=== PATIENT | female | born 1960 | race Caucasian/White ===

== ENCOUNTER 2024-10-25 04:33 | Emergency (ER) | payer MEDICARE, SELFPAY ==
--- NOTE | 2024-10-25 | ECG_ITS ---
Test Reason : BRADYCARDIA Blood Pressure : */* mmHG Vent. Rate : 65 BPM Atrial Rate : 65 BPM P-R Int : 198 ms QRS Dur : 96 ms QT Int : 416 ms P-R-T Axes : 8 -33 -1 degrees QTcB Int : 432 ms Normal sinus rhythm Left axis deviation Minimal voltage criteria for LVH, may be normal variant ( Anish product ) T wave abnormality, consider anterior ischemia Abnormal ECG No previous ECGs available Referred By: Generic ED Physician Electronically Signed By: ADELE AGUIAR MD
--- NOTE | ~2024-10-25 | XR_ITS ---
EXAMINATION: XR CHEST CLINICAL INFORMATION: weakness COMPARISON: None available. TECHNIQUE: Frontal view of the chest was obtained. FINDINGS: No significant abnormality is noted involving the heart, lungs, mediastinum, bony thorax or soft tissues. XR/XR chest 1V IMPRESSION: Unremarkable chest Electronically signed by: Walter Posey MD 10/25/2024 07:59 AM [facility]
[2024-10-25 04:38] VITALS: BP 118/76; PULSE 67; O2SAT 98
[2024-10-25 04:41] VITALS: BP 104/59; PULSE 63; RESP 17; TEMP 36.3; O2SAT 96; BMI 35.0
[2024-10-25 05:23] LABS: Basophils Percent Auto 0.2 % (0-2); Eosinophils Percent Auto 0.5 % (0-4); Hematocrit 43.1 % (37.0-47.0); Hemoglobin 14.4 g/dl (12.0-16.0); Imm Gran Abs Auto 0.03 X10*3/uL (0.00-0.03); Imm Gran Pct Auto 0.5 % (0.0-0.4); Lymphocytes Absolute Auto 1.3 X10*3/uL (1.2-4.9); Lymphocytes Percent Auto 21.1 % (20-40); MANUAL DIFF FLAG NO; Mean Corpuscular HGB Conc 33.4 g/dl (31.0-35.0); Mean Corpuscular Volume 89.8 fL (80.0-98.0); Mean Platelet Volume 12.1 fL (9.4-12.3); Monocytes Absolute Auto 0.6 X10*3/uL (0.1-1.2); Monocytes Percent Auto 10.1 % (2-11); Neutrophils Absolute Auto 4.3 x10*3/uL (2.0-8.3); Neutrophils Percent Auto 67.6 % (45-73); Platelet Count 167 X10*3/uL (160-400); Red Cell Distribution Width 13.2 % (11.0-16.0); White Blood Count 6.3 X10*3/uL (4.8-10.8)
[2024-10-25 05:42] VITALS: BP 107/62; PULSE 63; RESP 18; O2SAT 99
[2024-10-25 05:44] LABS: Troponin-I High Sensitivity 14.3 ng/L (<3.5-17.0)
[2024-10-25 05:49] LABS: Alanine Aminotransferase 13 U/L (0-31); Albumin Level 3.9 g/dL (3.5-5.0); Alkaline Phosphatase 86 U/L (39-117); Anion Gap 14 (12-20); Aspartate Amino Transferase 24 U/L (5-31); Bilirubin Total 0.8 mg/dL (0.0-1.0); Blood Urea Nitrogen 16 mg/dL (9-16); Calcium 8.9 mg/dL (8.4-10.2); Carbon Dioxide 27 mmol/L (22-29); Chloride 98 mmol/L (96-108); Creatinine Clr Calc Pharmacy 55.5; Estimated Glomerular Filt Rate 54; Glucose Random 222 mg/dL (60-115); Potassium 3.3 mmol/L (3.3-5.1); Sodium 136 mmol/L (135-145); Total Protein 7.2 g/dL (6.5-8.0)
[2024-10-25 06:00] LABS: Influenza A PCR NEGATIVE (Negative); Influenza B PCR NEGATIVE (Negative); Resp Syncy Virus RNA Qual PCR NEGATIVE (Negative); SARS COV2 PCR INHOUSE NEGATIVE (Negative)
--- NOTE | 2024-10-25 06:40 | ED_ITS ---
HPI - General Adult General Chief complaint: General Medical Stated complaint: bradycardia, dizziness, hypotension, diaphoretic Time Seen by Provider: 10/25/24 06:34 Source: patient and EMS Mode of arrival: EMS Limitations: no limitations History of Present Illness ED Provider: Margaux Sellers PA-C HPI narrative: Patient is a 64 year old assigned female at with a history of psychiatric conditions including paranoia presenting to the emergency department today after an episode of diarrhea. Patient states that she is at [facility] for mental health treatment when she had an episode of diarrhea and she became sweaty and felt like she was going to pass out. Patient states that she now feels fine and the symptoms have largely resolved. Patient states that her eyes have felt increasingly dry over the last few days and she believes that is because they use boric acid in the toilet paper at [facility]. Patient denies any dizziness, lightheadedness, abdominal pain, nausea, vomiting, fever, chills, blurry vision, double vision, loss of vision, chest pain, difficulty breathing, shortness of breath, back pain, night sweats, pain with urination, increased urinary frequency, increased urinary urgency, blood in her urine or stool, syncope or a near syncopal episode, recent trauma or falls, bowel incontinence, bladder incontinence, or any other complaints at this time. Relieving factors: none Exacerbating factors: none Associated symptoms: diaphoresis (brief with episode of diarrhea - now resolved) Treatments prior to arrival: none Related Data Home Medications ?Medication ?Instructions ?Recorded ?Confirmed acetaminophen 325 mg tablet 650 mg PO Q4H PRN Pain (Scale 10/25/24 Score 1-3) albuterol sulfate 90 mcg/actuation 2 puff inhalation Q8H PRN 10/25/24 aerosol inhaler SOB/wheezing aluminum-mag hydroxide-simethicone 30 ml PO QID PRN GI upset 10/25/24 200 mg-200 mg-20 mg/5 mL oral susp benzocaine 6 mg-menthol 10 mg 1 sunil mucous membrane Q2H PRN Sore 10/25/24 lozenges Throat calcium carbonate 500 mg PO Q4H PRN Heartburn 10/25/24 cyclobenzaprine 5 mg tablet 5 mg PO BEDTIME PRN muscle spasms 10/25/24 docusate sodium 100 mg capsule 100 mg PO BID PRN Constipation 10/25/24 escitalopram oxalate 5 mg tablet 5 mg PO DAILY 10/25/24 glimepiride 2 mg tablet 2 mg PO DAILY 10/25/24 guaifenesin 600 mg tablet, 1,200 mg PO BID PRN Cough 10/25/24 extended release 12 hr hydroxyzine pamoate 50 mg capsule 50 mg PO Q4H PRN severe anxiety 10/25/24 ibuprofen 400 mg tablet 400 mg PO Q8H PRN bodyache 10/25/24 loperamide 2 mg capsule 2 mg PO Q6H PRN Loose Stool 10/25/24 lurasidone 40 mg tablet 40 mg PO DAILY 10/25/24 magnesium hydroxide 400 mg/5 mL 30 ml PO DAILY PRN Constipation 10/25/24 oral suspension melatonin 3 mg tablet 3 mg PO BEDTIME PRN Insomnia 10/25/24 nicotine (polacrilex) 2 mg gum 2 mg buccal Q2H PRN nicotine 10/25/24 withdrawal nicotine 21 mg/24 hr daily 1 patch transdermal DAILY PRN 10/25/24 transdermal patch nicotine withdrawal omeprazole 20 mg capsule,delayed 20 mg PO DAILY@0630 10/25/24 release ondansetron 4 mg disintegrating 4 mg PO Q6H PRN nausea/vomiting 10/25/24 tablet prazosin 1 mg capsule 1 mg PO BEDTIME 10/25/24 sennosides 8.6 mg tablet 17.2 mg PO DAILY PRN Constipation 10/25/24 topiramate 50 mg tablet 50 mg PO BID 10/25/24 Allergies Allergy/AdvReac Type Severity Reaction Status Date / Time amoxicillin Allergy Unknown Verified 10/25/24 04:45 atezolizumab Allergy Unknown Verified 10/25/24 04:45 clindamycin Allergy Unknown Verified 10/25/24 04:45 Iodinated Contrast Media Allergy Unknown Verified 10/25/24 04:45 lisinopril Allergy Unknown Verified 10/25/24 04:45 Sulfa (Sulfonamide Allergy Unknown Verified 10/25/24 04:45 Antibiotics) Review of Systems 2 Constitutional: Constitutional: Reports no additional constitutional complaints, Denies chills, Denies fever(s) and Denies night sweats Eyes: Eyes: Reports no additional eye complaints, Denies blurry vision, Denies change in vision, Denies diplopia, Denies eye discharge, Denies loss of vision and Denies eye pain ENT: Denies dizziness Cardiovascular: Cardiovascular: Reports no additional cardiovascular complaints, Denies chest pain, Denies lightheadedness, Denies Loss of Consciousness and Denies dyspnea Respiratory: Respiratory: Reports no additional respiratory complaints and Denies dyspnea Gastrointestinal: Gastrointestinal: Reports no additional gastrointestinal complaints, Denies abdominal pain, Denies melena, Denies hematochezia, Denies change in bowel habits, Denies change in stool character, Reports diarrhea and Reports loose stools Genitourinary: Genitourinary: Denies hematuria, Denies urinary frequency, Denies dysuria, Denies urinary incontinence, Denies urinary hesitancy and Denies urinary urgency Musculoskeletal: Musculoskeletal: Reports no additional musculoskeletal complaints, Denies numbness and Denies tingling Neurologic: Denies dizziness, Denies loss of vision, Denies numbness and Denies tingling Psychiatric: Psychiatric: Reports no additional psychiatric complaints Endocrine: Endocrine: Reports no additional endocrine complaints Hematologic/Lymphatic: Hematologic/Lymphatic: Reports no additional hematologic/lymphatic complaints Allergic/Immunologic: Allergic/Immunologic: Reports no additional allergic/immunologic complaints [facility] Past Medical History Attestation statement: The following information was validated with the patient. Source: old records reviewed and nursing notes reviewed Physical Exam ED Vital Signs: Vital Signs - 24 hr 10/25/24 04:41 10/25/24 05:42 10/25/24 11:52 Temperature 97.3 F 98.8 F Pulse Rate 63 63 78 Respiratory Rate 17 18 16 Blood Pressure 104/59 L 107/62 124/69 Pulse Oximetry 96 99 96 Oxygen Delivery Method Room Air Room Air Room Air BMI result Body Mass Index 35.0 Const General: cooperative, no acute distress, alert and awake Nutritional Appearance: well nourished Orientation/consciousness: patient oriented x3 Limitations: no limitations [facility] Head: Yes normal to inspection and Yes atraumatic Ears: hearing grossly normal bilaterally and external ears normal General nose exam: Normal external nose present, no nasal discharge noted and no epistaxis Face and sinus: Yes normal facial exam, No abrasion and No laceration Mouth: Normal oral and palatal mucosa present, no drooling and no muffled voice Eyes General: appearance normal, both eyes and all related structures Periorbital: periorbital findings normal Eyelids: Yes eyelids normal Conjunctivae: conjunctivae normal Pupils: Equal, round and reactive pupils present EOM: EOMs intact bilaterally Neck Neck: Yes normal visual inspection, Yes full ROM and Yes no lymphadenopathy Chest Chest palpation & inspection: normal inspection of the chest Resp Effort & Inspection: normal respiratory effort and able to speak in complete sentences GI Inspection: Yes normal to inspection Palpation (GI): Soft to palpation, not firm, nontender and no guarding Neuro General: patient oriented x3 and moves all extremities Cranial nerves: Yes Equal, round and reactive pupils present Cognition (Neuro): normal cognition Extrem General: Yes normal to inspection, Yes full ROM and Yes capillary refill normal Psych Appearance: grossly normal Mental Status: mental status grossly normal Affect: Labile affect present Attitude: cooperative Thought process: Circumstantial thought process present Thought content: Paranoid delusions present Medications Administered Discontinued Medications Generic Name Dose Route Start Last Admin Trade Name Freq PRN Reason Stop Dose Admin Sodium Chloride 1,000 mls @ 999 mls/hr 10/25/24 07:30 10/25/24 11:51 Ns IV 10/25/24 08:30 Infused .Q1H1M HERMAN Infusion Medical Decision Making Medical Decision Making MDM Narrative: Patient is a 64 year old assigned female at with a history of psychiatric conditions including paranoia presenting to the emergency department today after an episode of diarrhea. Patient's physical exam showed a paranoid individual but was otherwise unremarkable. Patient's blood work was unremarkable. Patient's urine showed no acute process. Patient's EKG was unremarkable. Patient's chest x-ray showed no acute process. I explained my physical exam findings as well as all test results to the patient. I answered all questions asked by the patient. I believe the patient had a vasovagal reaction to diarrhea and likely has diarrhea secondary to gastroenteritis. Patient's eye concerns seem consistent with allergic conjunctivitis vs. dry eyes. I believe the patient's statement about boric acid at the facility is a paranoid delusion. I stressed the importance of the patient taking her medication as directed (either prescribed or as the over the counter packaging recommends). I stressed the importance of the patient following up with her primary care provider. I stressed the importance of the patient returning to the emergency department immediately if her symptoms were to worsen or if she were to develop any dizziness, shortness of breath, difficulty breathing, chest pain, blurry vision, loss of vision, nausea, vomiting, abdominal pain, fever, chills, back pain, or any other complaints. Patient verbalized agreement and understanding with this treatment plan and transfer back to [facility]. Differential Diagnosis Differential Diagnoses: The differential diagnosis associated with the presentation includes Gastroenteritis Vasovagal episode Diarrhea Admission/Observation Consideration of admission/observation: Escalation of care including admission/observation considered Patient would have been admitted to the hospital had her work up had any findings where hospital admission was appropriate and her clinical presentation warranted hospital admission. Lab Data [facility] Lab Attestation statement: I reviewed the patient's lab results. My interpretation of these results are in the [facility] Rationale portion of this note. 10/25/24 05:18 10/25/24 05:18 Labs: Lab Results 10/25/24 10/25/24 10/25/24 Range/Units 05:18 08:03 09:26 WBC 6.3 (4.8-10.8) X10*3/uL RBC 4.80 (4.20-5.50) X10*6/uL Hgb 14.4 (12.0-16.0) g/dl Hct 43.1 (37.0-47.0) % MCV 89.8 (80.0-98.0) fL MCH 30.0 (27.0-33.0) pg MCHC 33.4 (31.0-35.0) g/dl RDW 13.2 (11.0-16.0) % Plt Count 167 (160-400) X10*3/uL MPV 12.1 (9.4-12.3) fL Immature Gran % (Auto) 0.5 H (0.0-0.4) % Neut % (Auto) 67.6 (45-73) % Lymph % (Auto) 21.1 (20-40) % Hardy % (Auto) 10.1 (2-11) % Eos % (Auto) 0.5 (0-4) % Baso % (Auto) 0.2 (0-2) % Lymph # (Auto) 1.3 (1.2-4.9) X10*3/uL Hardy # (Auto) 0.6 (0.1-1.2) X10*3/uL Eos # (Auto) 0.0 (0.0-0.4) X10*3/uL Baso # (Auto) 0.0 (0.0-0.2) X10*3/uL Abs Immat Gran (auto) 0.03 (0.00-0.03) X10*3/uL Absolute Neuts (auto) 4.3 (2.0-8.3) x10*3/uL Absolute Nucleated RBC 0.000 (0.0-0.012) X10*3/uL Nucleated RBC % (auto) 0.0 (0.0-0.2) /100WBC Sodium 136 (135-145) mmol/L Potassium 3.3 (3.3-5.1) mmol/L Chloride 98 (96-108) mmol/L Carbon Dioxide 27 (22-29) mmol/L Anion Gap 14 (12-20) BUN 16 (9-16) mg/dL Creatinine 1.02 (0.5-1.4) mg/dL Estim Creat Clear Calc 55.5 Estimated GFR 54 Random Glucose 222 H (60-115) mg/dL Calcium 8.9 (8.4-10.2) mg/dL Total Bilirubin 0.8 (0.0-1.0) mg/dL AST 24 (5-31) U/L ALT 13 (0-31) U/L Alkaline Phosphatase 86 (39-117) U/L Troponin I High Sens 14.3 12.6 (<3.5-17.0) ng/L Total Protein 7.2 (6.5-8.0) g/dL Albumin 3.9 (3.5-5.0) g/dL Urine Color Yellow Urine Appearance Cloudy Urine pH 6.0 (5.0-9.0) Ur Specific [place] 1.015 (1.005-1.025) Urine Protein Trace (Neg-Trace) mg/dL Urine Glucose (UA) 100 H (Negative) mg/dL Urine Ketones Trace (Negative) mg/dL Urine Blood Negative (Negative) Urine Nitrite Negative (Negative) Ur Leukocyte Esterase Negative (Negative) Urine RBC 0-2 (0-2) /HPF Urine WBC 0-5 (0-5) /HPF Ur Squamous Epith Cells 11-20 (0-2) /HPF Urine Bacteria 1+ (None Seen) Hyaline Casts 0-2 (0-2) /LPF Influenza Type A (PCR) NEGATIVE (Negative) Influenza Type B (PCR) NEGATIVE (Negative) RSV RNA Qual (PCR) NEGATIVE (Negative) SARS-CoV-2 RNA (RT-PCR) NEGATIVE (Negative) Independent Interpretation I performed an independent interpretation of an: EKG and Plain X-Ray Interpretation: My interpretation is in agreement with the radiologist's impression of this imaging study. L EXAMINATION: XR CHEST CLINICAL INFORMATION: weakness COMPARISON: None available. TECHNIQUE: Frontal view of the chest was obtained. FINDINGS: No significant abnormality is noted involving the heart, lungs, mediastinum, bony thorax or soft tissues. XR/XR chest 1V IMPRESSION: Unremarkable chest Electronically signed by: Walter Posey MD 10/25/2024 07:59 AM EST Dictated By: Walter Posey MD Signed By: Electronically signed by Walter Posey MD 10/25/24 0759 Vent. Rate: 65 BPM Atrial Rate: 65 BPM P-R Int: 198 ms QRS Dur: 96 ms QT Int: 416 ms P-R-T Axes: 8 -33 -1 degrees QTcB Int: 432 ms Normal sinus rhythm Left axis deviation Minimal voltage criteria for LVH, may be normal variant (Carpenter product) T wave abnormality, consider anterior ischemia No previous ECGs available Electronically Signed By: RICH ARMENTA MD Dictated By: Rich Armenta MD Signed By: Electronically signed by Rich Armenta MD 10/25/24 1058 Radiology Impression Discussion of test interpretation with radiology: I have reviewed the radiologist's reading. Independent Historian Clinical information obtained from an independent historian. History obtained from or confirmed by: EMS (EMS provided additional history and confirmed the history provided by the patient.) Discharge Plan Discharge Clinical Impression: Dry eye, Gastroenteritis Patient Disposition: [facility] Transfer Details: back to [facility] Instructions: Gastroenteritis (DC), Dry Eye Syndrome (ED) Additional Instructions: Follow up with your primary care provider. Return to the emergency department immediately if your symptoms worsen or if you develop any dizziness, shortness of breath, difficulty breathing, chest pain, blurry vision, loss of vision, nausea, vomiting, abdominal pain, fever, chills, back pain, or any other complaints. Prescriptions: No Action sennosides 8.6 mg Tablet 17.2 mg PO DAILY PRN (Reason: Constipation) acetaminophen 325 mg Tablet 650 mg PO Q4H PRN (Reason: Pain (Scale Score 1-3)) loperamide 2 mg Capsule 2 mg PO Q6H PRN (Reason: Loose Stool) Rx Instructions: MAX 16mg per day nicotine (polacrilex) 2 mg Gum 2 mg BUCCAL Q2H PRN (Reason: nicotine withdrawal) melatonin 3 mg Tablet 3 mg PO BEDTIME PRN (Reason: Insomnia) magnesium hydroxide 400 mg/5 mL Suspension 30 ml PO DAILY PRN (Reason: Constipation) ibuprofen 400 mg Tablet 400 mg PO Q8H PRN (Reason: bodyache) nicotine 21 mg/24 hr Patch 24 Hour 1 patch TRANSDERMAL DAILY PRN (Reason: nicotine withdrawal) Rx Instructions: remove at bedtime docusate sodium 100 mg Capsule 100 mg PO BID PRN (Reason: Constipation) calcium carbonate 500 mg calcium (1,250 mg) Tablet,Chewable 500 mg PO Q4H PRN (Reason: Heartburn) alum-mag hydroxide-simeth 200-200-20 mg/5 mL Suspension 30 ml PO QID PRN (Reason: GI upset) Rx Instructions: administer between meals and at bedtime ondansetron 4 mg Tablet,Disintegrating 4 mg PO Q6H PRN (Reason: nausea/vomiting) benzocaine-menthol 6-10 mg Lozenge 1 sunil MUCOUS MEMBRANE Q2H PRN (Reason: Sore Throat) guaifenesin 600 mg Tablet Extended Release 12hr 1,200 mg PO BID PRN (Reason: Cough) prazosin 1 mg Capsule 1 mg PO BEDTIME hydroxyzine pamoate 50 mg Capsule 50 mg PO Q4H PRN (Reason: severe anxiety) glimepiride 2 mg Tablet 2 mg PO DAILY omeprazole 20 mg Capsule,Delayed Release(Dr/Ec) 20 mg PO DAILY@0630 albuterol sulfate 90 mcg/actuation Hfa Aerosol Inhaler 2 puff INHALATION Q8H PRN (Reason: SOB/wheezing) cyclobenzaprine 5 mg Tablet 5 mg PO BEDTIME PRN (Reason: muscle spasms) escitalopram oxalate 5 mg Tablet 5 mg PO DAILY topiramate 50 mg Tablet 50 mg PO BID lurasidone 40 mg Tablet 40 mg PO DAILY Rx Instructions: must administer with food (at least 350 calories) Referrals: [facility] [place]] (Call to establish and follow up with a primary care provider. If you already have a primary care provider, please follow up with them.) [facility] [place] [facility] [place] [Provider Group] (Call to establish and follow up with a primary care provider. If you already have a primary care provider, please follow up with them.) [facility] [place] [facility] [Provider Group] (Call to establish and follow up with a primary care provider. If you already have a primary care provider, please follow up with them.) Discharge Date/Time: 10/25/24 11:55 Print Language: Czech
[2024-10-25] MEDS: 0.9 % Sodium Chloride 1,000 ML 999 ML IV (07:41)
[2024-10-25 08:35] LABS: Troponin-I High Sensitivity 12.6 ng/L (<3.5-17.0)
[2024-10-25 09:32] LABS: Appearance Urine Cloudy; Color Urine Yellow; Glucose Urine UA 100 mg/dL (Negative); Leukocyte Esterase Urine Negative (Negative); Nitrite Urine Negative (Negative); Specific Gravity - Urine 1.015 (1.005-1.025); Urine Blood Negative (Negative); Urine Ketones Trace mg/dL (Negative); Urine Protein Trace mg/dL (Neg-Trace)
[2024-10-25 09:46] LABS: Bacteria Urine 1+ (None Seen); Hyaline Casts Urine 0-2 /LPF (0-2); RBC Urine 0-2 /HPF (0-2); WBC Urine 0-5 /HPF (0-5)
--- NOTE | 2024-10-25 10:45 | PC.NURSE ---
patient given sandwiches and gingerale, tolerated po, no vomiting
[2024-10-25 11:52] VITALS: BP 124/69; PULSE 78; RESP 16; TEMP 37.1; O2SAT 96
--- NOTE | 2024-10-25 11:54 | PC.NURSE ---
report given to ems, iv removed.
== END 2024-10-25 11:55 ==
PROVIDERS: Physician Assistant Medical; Emergency Provider Emergency Medicine
DX: K52.9 Noninfective gastroenteritis and colitis, unspecified (principal); H04.129 Dry eye syndrome of unspecified lacrimal gland; Z79.899 Other long term (current) drug therapy; Z03.818 Encounter for observation for suspected exposure to other biological agents ruled out
CPT/HCPCS: 0241U; 36415; 71045; 80053; 81001; 84484; 85025; 93005; 96360; 96361; 99284

== ENCOUNTER → 2024-10-25 04:47 | Outpatient (BNV) | payer MEDICARE, SELFPAY | PROVIDERS: Emergency Provider Emergency Medicine; Visit Provider Internal Medicine Cardiovascular Disease | DX: R94.31 Abnormal electrocardiogram [ECG] [EKG] (principal) | CPT/HCPCS: 93010 ==

== ENCOUNTER → 2024-10-25 07:26 | Outpatient (BNV) | payer MEDICARE, SELFPAY | PROVIDERS: Emergency Provider Emergency Medicine; Visit Provider Radiology Diagnostic Radiology | DX: R53.1 Weakness (principal) | CPT/HCPCS: 71045 ==